=== PATIENT | female | born 1985 | race Caucasian/White ===

== ENCOUNTER → 2018-03-10 | Outpatient (CLI) | payer OTHER ==
[~2018-03-10] MED LIST: IBUP800 PO; Norco 5-325 Ta1 EACH PO; OXYACE5T PO
== END ==
LOC: LAB SHORT 15:48 → LAB 15:48
DX: R82.90 Unspecified abnormal findings in urine (principal)
CPT/HCPCS: 87077; 87086; 87186

== ENCOUNTER → 2018-07-19 | Outpatient (CLI) | payer OTHER | END | disposition home or self-care (01) | LOC: LAB SHORT 15:16 → LAB 15:16 | DX: Z34.80 Encounter for supervision of other normal pregnancy, unspecified trimester (principal) | CPT/HCPCS: 87081; 87653 ==

== ENCOUNTER 2018-08-24 14:54 | Inpatient (IN) | payer OTHER ==
[~2018-08-24] VITALS: Ht 162.6 cm; Wt 87.9 kg
[2018-08-24] MEDS ORDERED: Prilosec Otc20 MG PO (16:28)
[2018-08-24] MEDS ORDERED: ACET500 PO (16:29)
[2018-08-24] MEDS ORDERED: Verotin-Gr Cap1 EACH (16:29)
[2018-08-24 16:30] LABS: BASOPHILS ABSOLUTE AUTO 0.03 K/mm3 (0.00-0.23); BASOPHILS PERCENT AUTO 0 % (0-2); EOSINOPHILS ABSOLUTE AUTO 0.08 K/mm3 (0.00-0.68); EOSINOPHILS PERCENT AUTO 1 % (0-6); Hematocrit 31.8 % (33.0-51.0); Hemoglobin 10.5 g/dL (11.5-16.0); IMMATURE GRAN ABSOLUTE AUTO 0.02 K/mm3 (0.00-0.10); IMMATURE GRAN PERCENT AUTO 0 % (0-1); LYMPHOCYTES ABSOLUTE AUTO 1.94 K/mm3 (0.84-5.20); LYMPHOCYTES PERCENT AUTO 19 % (21-46); MONOCYTES ABSOLUTE AUTO 0.68 K/mm3 (0.16-1.47); MONOCYTES PERCENT AUTO 7 % (4-13); Mean Corpuscular HGB 31.9 pg (26.0-34.0); Mean Corpuscular Volume 97 fL (80-100); NEUTROPHILS ABSOLUTE AUTO 7.52 K/mm3 (1.96-9.15); NEUTROPHILS PERCENT AUTO 73 % (41-73); Platelet Count 198 K/mm3 (150-400); RDW Coefficient Variation 12.6 % (11.7-14.2); RDW Standard Deviation 45.1 fL (35.1-46.3); Red Blood Cell Count 3.29 M/mm3 (3.80-5.20); White Blood Cell Count 10.27 K/mm3 (4.00-11.30)
[2018-08-24] MEDS ORDERED: TUMS200 MG (16:30)
--- NOTE | 2018-08-25 02:15 | NUR ---
PT VOIDED IN SHOWER
--- NOTE | 2018-08-25 08:50 | NUR ---
PAIN PT CRYING AND NB PT STATES THE CRAMPING IS 8/10 PAIN NOTHING HAS HELPED TYLENOL,TORADOL AND HEATING PAD GIVEN AROUND [address] COLMENARES FOR PAIN CONTROL
[2018-08-25 13:12] LABS: Hematocrit 31.7 % (33.0-51.0); Hemoglobin 10.5 g/dL (11.5-16.0); Mean Corpuscular HGB 32.5 pg (26.0-34.0); Mean Corpuscular HGB Conc 33.1 g/dL (31.5-36.5); Mean Corpuscular Volume 98 fL (80-100); Mean Platelet Volume 10.4 fL (9.1-12.4); Platelet Count 175 K/mm3 (150-400); RDW Coefficient Variation 12.5 % (11.7-14.2); Red Blood Cell Count 3.23 M/mm3 (3.80-5.20); White Blood Cell Count 12.15 K/mm3 (4.00-11.30)
--- NOTE | 2018-08-25 14:15 | NUR ---
pt called and states "my pain is 8/10 and albertina never had pain like this with any of my other children" upon assessment pt pain is located in Symphysis pubis area and inner hip joint areas. pt also has abd cramping but but states the ache is horrible in pelvic bone area. pt shaking and feels nauseated pt medicated with zofran 4mg iv and 1 roxycodone. minimal swelling to perineum and no apparent hematoma at repair siteskin and tissue soft and nontender upon touch.
--- NOTE | 2018-08-26 09:49 | NUR ---
dedpression Talked with pt in [facility] to hx of depression asked about support pt states" i have no friends/family here in [place]" Pt has lived here for 3 years pt also states works and then comes home and gets on computer he does not help with children or house hold chores pt does not have drivers license but is trying to get one. pt broke down in tears and cont to apologize for crying pt told me she was close to her mom who a few years ago from cancer and she has a sister with perminate brain damage from a drug over dose. 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 we talked about the importance of self care and that we need to take care of ourselves first in order to take care of of our family. pt would like to start on an antidepressant and states she knows the signs to get help. pt states she put herself in treatment after her 2nd child when she felt depressed. pt does not think therapy is helpful she has had bad experiences in the past with therapists. P ok with doing core referral
[2018-08-26] MEDS ORDERED: Percocet 5-3251 EACH PO (13:46)
[2018-08-26] MEDS ORDERED: SERT50 PO (13:47)
[2018-08-26] MEDS ORDERED: IBUP800 PO (13:47)
[2018-08-26] MEDS ORDERED: CYCL10 PO (13:50)
== END 2018-08-26 14:15 | disposition home or self-care (01) | DRG 807 ==
LOC: OBS 14:54 → BC 14:56 → OBS 15:59 → BC 16:01
PROVIDERS: ADMIT Obstetrics & Gynecology
PROC: 10E0XZZ Delivery of Products of Conception, External Approach (ICD-10-PCS; principal; 2018-08-25)
PROC: 10907ZC Drainage of Amniotic Fluid, Therapeutic from Products of Conception, Via Natural or Artificial Opening (ICD-10-PCS; 2018-08-25)
DX: O99.824 Streptococcus B carrier state complicating childbirth (principal); Z37.0 Single live birth; O70.1 Second degree perineal laceration during delivery; Z3A.40 40 weeks gestation of pregnancy; Z86.59 Personal history of other mental and behavioral disorders; Z87.891 Personal history of nicotine dependence
CPT/HCPCS: 36415; 59025; 85025; 85027; A9270; J0290; J1885; J2405; J2590; J3010; J7120

== ENCOUNTER 2020-01-12 21:14 | Emergency (ER) | payer OTHER ==
[~2020-01-12] VITALS: Ht 162.6 cm; Wt 69.0 kg
[~2020-01-12 21:14] MED LIST changes: +ACET500 PO; +CYCL10 PO; +OMEP20ER PO; +Percocet 5-3251 EACH PO; +Prilosec Otc20 MG PO; +SERT50 PO; +TUMS200 MG; +Verotin-Gr Cap1 EACH
[2020-01-12] MEDS ORDERED: IBUP800 PO (22:27)
[2020-01-12] MEDS ORDERED: CYCL10 PO (22:27)
== END 2020-01-12 22:49 | disposition home or self-care (01) ==
LOC: ER 21:14
DX: M54.5 Low back pain (principal); Z79.899 Other long term (current) drug therapy
CPT/HCPCS: 72100; 99283-25; A9270

== ENCOUNTER 2020-09-24 21:13 | Emergency (ER) | payer OTHER ==
[~2020-09-24] VITALS: Ht 162.6 cm; Wt 81.7 kg
[2020-09-24 21:45] LABS: Source, Urine Clean Catch
[2020-09-24 21:54] LABS: Bilirubin, Urine Neg (Neg); Blood, Urine Neg (Neg); Glucose Qualitative, Urine Neg (Neg); Ketones, Urine Neg (Neg); Leukocyte Esterase, Urine Neg (Neg); Nitrite, Urine Neg (Neg); Protein, Urine Neg (Neg); Specific Gravity, Urine 1.005 (1.003-1.022); Urobilinogen, Urine NORM (Normal)
[2020-09-24 22:00] LABS: Appearance, Urine Clear (Clear); Color, Urine Pale Yellow (P-Yellow)
[2020-09-24 22:14] LABS: BASOPHILS ABSOLUTE AUTO 0.04 K/mm3 (0.00-0.23); BASOPHILS PERCENT AUTO 1 % (0-2); EOSINOPHILS ABSOLUTE AUTO 0.09 K/mm3 (0.00-0.68); EOSINOPHILS PERCENT AUTO 1 % (0-6); Hematocrit 37.7 % (33.0-51.0); Hemoglobin 12.8 g/dL (11.5-16.0); IMMATURE GRAN ABSOLUTE AUTO 0.02 K/mm3 (0.00-0.10); IMMATURE GRAN PERCENT AUTO 0 % (0-1); LYMPHOCYTES ABSOLUTE AUTO 2.07 K/mm3 (0.84-5.20); LYMPHOCYTES PERCENT AUTO 26 % (21-46); MONOCYTES ABSOLUTE AUTO 0.47 K/mm3 (0.16-1.47); MONOCYTES PERCENT AUTO 6 % (4-13); Mean Corpuscular HGB 32.1 pg (26.0-34.0); Mean Corpuscular Volume 95 fL (80-100); Mean Platelet Volume 10.4 fL (9.1-12.4); NEUTROPHILS ABSOLUTE AUTO 5.19 K/mm3 (1.96-9.15); NEUTROPHILS PERCENT AUTO 66 % (41-73); Platelet Count 216 K/mm3 (150-400); RDW Coefficient Variation 11.9 % (11.7-14.2); RDW Standard Deviation 41.3 fL (35.1-46.3); Red Blood Cell Count 3.99 M/mm3 (3.80-5.20); White Blood Cell Count 7.88 K/mm3 (4.00-11.30)
[2020-09-24 22:31] LABS: Alanine Aminotransfer (ALT/SGP 34 U/L (12-78); Albumin, Blood 3.5 g/dL (3.4-5.0); Alk Phos 83 U/L (50-136); Anion Gap 6 mmol/L (6-16); Aspartate Aminotrans (AST/SGOT 19 U/L (12-37); Bilirubin, Total 0.4 mg/dL (0.1-1.0); Blood Urea Nitrogen 11 mg/dL (8-24); Bun/Creatinine Ratio 15.9 (12.0-20.0); CO2, Blood 25 mmol/L (21-32); Calcium, Blood 8.5 mg/dL (8.5-10.1); Chloride, Blood 108 mmol/L (98-108); Creatinine, Blood 0.69 mg/dL (0.40-1.00); Globulin, Blood 3.5 g/dL (2.2-4.0); Glomerular Filtration Rate >60 (60-); Glucose, Blood 95 mg/dL (70-99); Potassium, Blood 3.6 mmol/L (3.5-5.5); Sodium, Blood 139 mmol/L (136-145); Troponin I <0.015 ng/mL (0.000-0.040)
[2020-09-25] MEDS ORDERED: GABAPENTIN600 MG PO (02:53)
[2020-09-25] MEDS ORDERED: PANTOPRAZOLE SO40 M2 (02:54)
[2020-09-25] MEDS ORDERED: BUPROPION XL150 M1 PO (02:54)
[2020-09-25] MEDS ORDERED: HYDROCODONE-AC1 EA13 PO (02:54)
== END 2020-09-25 03:12 | disposition home or self-care (01) ==
LOC: ER 21:13
PROVIDERS: Physician Assistant
DX: R07.89 Other chest pain (principal); K21.9 Gastro-esophageal reflux disease without esophagitis; Z87.891 Personal history of nicotine dependence; Z79.899 Other long term (current) drug therapy
CPT/HCPCS: 71046; 80053; 81003; 81025; 83690; 83880; 84484; 85025; 93005; 93010; 99285-25

== ENCOUNTER → 2021-10-30 | Outpatient (CLI) | payer OTHER ==
[~2021-10-30] MED LIST changes: +BUPROPION XL150 M1 PO; +GABAPENTIN600 MG PO; +HYDROCODONE-AC1 EA13 PO; +PANTOPRAZOLE SO40 M2
[2021-10-30 17:33] LABS: Bun/Creatinine Ratio 15.9 (12.0-20.0); Calcium, Blood 8.5 mg/dL (8.5-10.1); Creatinine, Blood 0.69 mg/dL (0.40-1.00); Magnesium, Blood 2.5 mg/dL (1.6-2.4); Potassium, Blood 3.8 mmol/L (3.5-5.5)
== END | disposition home or self-care (01) ==
LOC: LAB SHORT 17:24 → LAB 17:24
PROVIDERS: Chiropractor
DX: M54.2 Cervicalgia (principal); R00.2 Palpitations
CPT/HCPCS: 80048; 83735